=== PATIENT | female | born 1950 | race Caucasian/White ===

== ENCOUNTER → 2017-03-27 | Outpatient (CLI) | payer OTHER ==
[~2017-03-27] MED LIST: ASPCH81X PO; ATOR10TA82 PO; BLAC40CA2 PO; CLON0.1D7 TD; GLIM2TAB2 PO; LANS30CA41 PO; LORA-741 PO; MULT-506 PO; MULT-663 PO; SUCR1TAB PO; UMEC1AER INH
--- NOTE | 2017-03-27 14:29 | DIAGNOSTIC IMAGING REPORT ---
FLUOROSCOPICALLY GUIDED LEFT HIP INTRA-ARTICULAR STEROID INJECTION CLINICAL HISTORY: Left hip degenerative joint disease. FLUOROSCOPY TIME: 13 seconds. FINDINGS: The procedure, risks and benefits were discussed with the patient and informed written consent was obtained. The procedure was performed by Dr. Simpson following a timeout. Premedication for IV dye allergy was utilized according to protocol. Skin overlying the left hip was prepped and draped in sterile fashion and local anesthesia was achieved with 1% lidocaine. Under intermittent fluoroscopic guidance, a 3 1/2 inch, 22-gauge spinal needle was directed into the left hip joint. Positioning within the joint was confirmed with injection of a small amount of contrast. At this time, a mixture of 2 cc of Celestone and 5 cc of 0.5% Marcaine was injected into the left hip joint. The needle was removed. The patient tolerated the procedure well and no immediate complications were evident. One fluoroscopic image was obtained. IMPRESSION: Fluoroscopically guided left hip intra-articular injection of 2 cc of Celestone and 5 cc of 0.5% Marcaine. Electronically signed by: Deepak Simpson M.D. 03/27/2017 2:28 PM Dictated Date/Time: 03/27/2017 2:25 PM
== END | disposition home or self-care (01) ==
LOC: C.RADBC 13:30
PROVIDERS: ATTEND Orthopaedic Surgery
DX: M16.12 Unilateral primary osteoarthritis, left hip (principal)

== ENCOUNTER → 2017-05-01 | Outpatient (CLI) | payer OTHER ==
--- NOTE | 2017-05-01 15:12 | DIAGNOSTIC IMAGING REPORT ---
LUMBAR SPINE W/O CONTRAST CLINICAL HISTORY: 66 years-old Female presenting with LUMBAR RADICULOPATHY, pain in hips. TECHNIQUE: Multisequence, multiplanar MR imaging of the lumbar spine was performed without the use of intravenous contrast. IV contrast: None. COMPARISON: Plain radiographs from 04/29/2017. FINDINGS: Localizer images: Unremarkable. Normal lumbar lordosis. Vertebral bodies maintain normal height, alignment, bone marrow signal intensity. Intervertebral disc desiccation noted diffusely. Intervertebral disc height loss at L1-2 and L5-S1. Multilevel degenerative changes further detailed below: L1-2: Mild disc bulge results in minimal effacement of the anterior thecal sac. No significant neural foraminal narrowing. L2-3: Mild disc bulge and minimal facet arthropathy. Minimal effacement of the anterior thecal sac. No significant neural foraminal narrowing. L3-4: Decreased disc bulge. More significant facet arthropathy and ligamentum flavum thickening. No significant spinal canal stenosis. However mild bilateral neural foraminal narrowing. L4-5: Minimal disc bulge and ligamentum flavum thickening without significant spinal canal narrowing. Mild bilateral neural foraminal narrowing. L5-S1: Mild disc bulge. Mild right and moderate left neural foraminal narrowing. Paraspinal musculature within normal limits. No epidural collection. Spinal cord ends in good position at the inferior endplate of L1. Cauda equina normal in morphology. Abdominal aortic aneurysm measures up to 3 cm in diameter. IMPRESSION: 1. Mild multilevel degenerative changes. No significant spinal canal stenosis. Multilevel neural foraminal narrowing as above. 2. 3 cm abdominal aortic aneurysm. Electronically signed by: Bulmaro Ramirez M.D. 05/01/2017 3:11 PM Dictated Date/Time: 05/01/2017 3:06 PM
== END | disposition home or self-care (01) ==
LOC: C.MRIBC 14:15
PROVIDERS: ATTEND Orthopaedic Surgery
DX: M47.816 Spondylosis without myelopathy or radiculopathy, lumbar region (principal); I71.4 Abdominal aortic aneurysm, without rupture

== ENCOUNTER → 2017-05-25 | Outpatient (CLI) | payer OTHER ==
--- NOTE | 2017-05-25 15:44 | DIAGNOSTIC IMAGING REPORT ---
L LOWER EXT JOINT WITHOUT CLINICAL HISTORY: LEFT HIP PAIN pain TECHNIQUE: Multi axial MRI acquisition COMPARISON STUDY: None FINDINGS: Signal characteristics of the femoral heads indicate geographic alteration in signal of the mid to anterior aspects of the femoral heads. Moderate subchondral edema is identified in a geographic pattern. The overlying articular surfaces appear to be generally intact. No significant joint effusion or bony substance loss. The Pattern, however is consistent with that of developing avascular necrosis. Signal characteristics of all remaining osseous structures are considered unremarkable. No additional bone marrow replacing process is identified. Major surrounding soft tissue structures are unremarkable. Bowel pattern is nonobstructive. Uterus is midline and is unremarkable for age. Bladder is relatively collapsed. There is no significant pelvic or inguinal adenopathy. IMPRESSION: 1. 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 2. No evidence at this time for developing bony substance loss or collapse of the articular surfaces 3. All remaining components of the pelvis are unremarkable. The above report was generated using voice recognition software. It may contain grammatical, syntax or spelling errors. Electronically signed by: Tony Gonzalez M.D. 05/25/2017 3:43 PM Dictated Date/Time: 05/25/2017 3:38 PM
== END | disposition home or self-care (01) ==
LOC: C.MRIBC 14:30
PROVIDERS: ATTEND Orthopaedic Surgery
DX: M87.352 Other secondary osteonecrosis, left femur (principal)

== ENCOUNTER 2017-06-26 04:53 | Inpatient (IN) | payer OTHER ==
[2017-06-15 09:39] VITALS: BMI 23.0
--- NOTE | 2017-06-15 10:19 | PAT Medication Instructions ---
Service Date Jun 15, 2017. Current Home Medication List Ascorbic Acid (Vitamin C), 500 PO QAM Aspirin (Aspirin Chewable), 81 MG PO QAM Clopidogrel (Plavix), 75 MG PO QAM Dexlansoprazole (Dexilant), 30 MG PO BID Ferrous Sulfate (Iron), 325 MG PO BID Gabapentin (Neurontin), 100 MG PO TID Glimepiride (Glimepiride), 1 TAB PO QAM Lorazepam (Ativan), 0.5 MG PO BID Metformin Hcl (Glucophage), 1,000 MG PO BID Multivit/Min/Iron/Fol Ac/Pren ( Vitamin), 2 TAB PO QAM Rosuvastatin Calcium (Crestor), 5 MG PO QAM Umeclidinium-Vilanterol (Anoro Ellipta 62.5-25 Mcg/INH), 1 PUFF INH QAM Vitamin E (Alph-E), 400 UNITS PO BID [Citrical], 2 TAB PO QAM [Vitamin B12], 2 TAB PO QAM Medication Instructions For Your Scheduled Surgery -Hold the following medications for five days per your prescriber's instructions : Clopidogrel (Plavix), 75 MG PO QAM - Hold the following medications starting today: Vitamin E (Alph-E), 400 UNITS PO BID - Hold the following medications 7 days prior to surgery per your surgeon's instructions: Ascorbic Acid (Vitamin C), 500 PO QAM Ferrous Sulfate (Iron), 325 MG PO BID Multivit/Min/Iron/Fol Ac/Pren ( Vitamin), 2 TAB PO QAM [Citrical], 2 TAB PO QAM [Vitamin B12], 2 TAB PO QAM - Hold the following medications the morning of surgery: Dexlansoprazole (Dexilant), 30 MG PO BID Glimepiride (Glimepiride), 1 TAB PO QAM Metformin Hcl (Glucophage), 1,000 MG PO BID - Take the following medications the morning of surgery with a sip of water: Aspirin (Aspirin Chewable), 81 MG PO QAM Gabapentin (Neurontin), 100 MG PO TID Lorazepam (Ativan), 0.5 MG PO BID Rosuvastatin Calcium (Crestor), 5 MG PO QAM Umeclidinium-Vilanterol (Anoro Ellipta 62.5-25 Mcg/INH), 1 PUFF INH QAM - Take the following medications as scheduled the night before surgery: Dexlansoprazole (Dexilant), 30 MG PO BID Ferrous Sulfate (Iron), 325 MG PO BID Gabapentin (Neurontin), 100 MG PO TID Lorazepam (Ativan), 0.5 MG PO BID Metformin Hcl (Glucophage), 1,000 MG PO BID If you have any questions please call us at [phone] or [phone] or [phone]
--- NOTE | 2017-06-15 11:06 | DIAGNOSTIC IMAGING REPORT ---
CHEST 2 VIEWS ROUTINE CLINICAL HISTORY: 66 years-old Female presenting with preoperative assessment. TECHNIQUE: PA and lateral views of the chest were obtained. COMPARISON: None. FINDINGS: Atherosclerosis of the aortic arch. Cardiac silhouette normal in size. Lungs and pleural spaces clear. Osseous structures normal. Upper abdomen normal. IMPRESSION: 1. No acute cardiopulmonary disease. Electronically signed by: Bulmaro Ramirez M.D. 06/15/2017 11:04 AM Dictated Date/Time: 06/15/2017 11:03 AM
[2017-06-15 12:00] LABS: BASO % 0.3 %; BASO ABS # 0.02 K/uL (0-0.2); EOS % 0.9 %; EOS ABS # 0.06 K/uL (0-0.5); HEMATOCRIT 36.1 % (37-47); IG# 0.02 K/uL (0.00-0.02); LYMPH % 24.6 %; LYMPH ABS # 1.65 K/uL (1.2-3.4); MEAN CELL VOLUME 90.5 fL (80-100); MEAN CORPUSCULAR HEMOGLOBIN 27.6 pg (25-34); MEAN CORPUSCULAR HGB CONC 30.5 g/dl (32-36); MEAN PLATELET VOLUME 9.2 fL (7.4-10.4); MONO % 8.5 %; MONO ABS # 0.57 K/uL (0.11-0.59); NEUT % 65.4 %; NEUT ABS # 4.39 K/uL (1.4-6.5); PLATELET COUNT 175 K/uL (130-400); WHITE BLOOD COUNT 6.71 K/uL (4.8-10.8)
[2017-06-15 12:08] LABS: INR 1.1 (0.9-1.1); PTT PATIENT 25.7 SECONDS (21.0-31.0)
[2017-06-15 13:28] LABS: HEMOGLOBIN A1C 4.8 % (4.5-5.6)
[2017-06-15 14:25] LABS: CALCIUM 9.2 mg/dl (8.5-10.1); CREATININE 0.6 mg/dl (0.60-1.20); POTASSIUM 3.4 mmol/L (3.5-5.1)
--- NOTE | 2017-06-25 17:14 | HISTORY & PHYSICAL EXAMINATION ---
DATE OF ADMISSION: 06/26/2017 CHIEF COMPLAINT: Avascular necrosis of the left hip. HISTORY OF PRESENT ILLNESS: Laly is a pleasant 66-year-old female who has been dealing with bilateral hip pain, left worse than right, for several months. X-rays did not look too bad. I gave her an intraarticular injection in the hip. It did help some with her symptoms, but she was still having pain. X-rays and MRI of the lumbar spine were essentially negative. I then got an MRI of her hip. MRI did show avascular necrosis. After failing conservative treatment, she elected to proceed with a left total hip arthroplasty. PAST MEDICAL HISTORY: Significant for okm-trucjas-tnyrhwbmo diabetes, hyperlipidemia, liver disease, COPD, stent placement in her left femoral artery which is the reason for Plavix. PAST SURGICAL HISTORY: Significant for a surgery to her right iliac vessels. ALLERGIES: IODINE IN IV AND BRAZIL NUTS. MEDICATIONS: Include Crestor, metformin, lorazepam, lansoprazole, Breo inhaler, gabapentin, Plavix, vitamin E, baby aspirin, and glimepiride. FAMILY HISTORY: Significant for diabetes and squamous cell carcinoma. SOCIAL HISTORY: Patient is , rarely drinks, is mildly active. REVIEW OF SYSTEMS: She complains of bilateral hip pain, left worse than right. All other pertinent review of systems negative. PHYSICAL EXAMINATION. GENERAL: She is awake, alert, and oriented x3. She is in no apparent distress. She is very pleasant. HEENT: Pupils are equal, round, and reactive to light. Extraocular movements are intact. Oral mucosa is pink and moist. CARDIOVASCULAR: The heart has regular rate per radial pulse. RESPIRATORY: The lungs autumn symmetrically bilaterally with no audible breath sounds. GASTROINTESTINAL: The abdomen is soft, nontender, nondistended. MUSCULOSKELETAL: On physical examination of her hip, her leg lengths are equal. She does walk with slightly antalgic gait. She has range of motion with 100 degrees of flexion, 30 degrees of external rotation, 20 degrees of internal rotation. She has pain with forced internal rotation of the hip, 5/5 muscle strength with straight leg raise. No pain over the greater trochanteric bursa. IMAGING DATA: MRI of the hip shows avascular necrosis of the femoral head. There are no signs of collapse. IMPRESSION: Avascular necrosis of the left hip. PLAN: We will proceed with a left anterior total hip arthroplasty. Postoperatively, she will be started on aspirin for DVT prophylaxis and kept overnight in the hospital for postoperative medical management.
[~2017-06-26] VITALS: Ht 157.5 cm; Wt 59.1 kg
[2017-06-26] VITALS (10 sets, daily range): BP systolic 152–178; BP diastolic 68–91; PULSE 72–88; TEMP 36.4–36.9; O2SAT 93–100; Ht 157.5 cm; Wt 59.1 kg
[~2017-06-26 04:53] MED LIST changes: +ASCO1CAP3 PO; -ATOR10TA82 PO; -BLAC40CA2 PO; +CITRICAL PO; -CLON0.1D7 TD; +CLOP1TAB15 PO; +DEXL30CA5 PO; +FERR1TAB23 PO; +GABA-112 PO; -LANS30CA41 PO; +METF-384 PO; -MULT-506 PO; -MULT-663 PO; +PRENTAB26 PO; +ROSU5TAB PO; -SUCR1TAB PO; +VITA400C28 PO; +VITAMIN B12 PO
[2017-06-26] MEDS ORDERED: TRANEXAMIC ACID INJ 1,000 MG x 2 Bags IV SCH ×2 (06:00)
[2017-06-26] MEDS ORDERED: CEFAZOLIN 2000MG IV PUSH 15 ML IV SCH (06:00)
[2017-06-26] MEDS ORDERED: ROPIVACAINE 5MG/ML 30 ML 150 MG, BUPIVACAINE 0.5% MPF INJ 30 ML, EpINEphrine HCL INJ 0.... INFIL SCH ×8 (06:00)
[2017-06-26] MEDS ORDERED: FAMOTIDINE 20 MG TAB PO SCH (06:00)
[2017-06-26] MEDS ORDERED: LACTATED RINGER'S 1000ML 1,000 ML IV SCH (06:00)
[2017-06-26] MEDS ORDERED: ACETAMINOPHEN 500 MG TAB PO SCH (06:00)
[2017-06-26] MEDS ORDERED: LACTATED RINGER'S 1000ML 500 ML IV SCH (06:00)
[2017-06-26] MEDS ORDERED: LACTATED RINGER'S 1000ML IV SCH (06:00)
[2017-06-26] MEDS ORDERED: GABAPENTIN 300 MG CAP PO SCH (06:00)
[2017-06-26] MEDS ORDERED: BUPIVACAINE 0.5 % 5 MG/1 ML PF 10ML VIAL ONE (06:14)
[2017-06-26] MEDS ORDERED: FENTANYL CITRATE INJ 50 MCG/1 ML 2 ML VIAL ONE (06:17)
[2017-06-26] MEDS ORDERED: MIDAZOLAM HCL 1 MG/ML 2ML VIAL ONE (06:17)
[2017-06-26] MEDS ORDERED: BACITRACIN 50000 UNIT VIAL ONE (06:34)
--- NOTE | 2017-06-26 06:50 | History & Physical Bridge Note ---
H&P Re-Evaluation Bridge Note: I have examined the patient, reviewed the History & Physical and in the interval since the performance of the History & Physical I have noted the following changes of clinical significance: No changes noted
[2017-06-26] MEDS ORDERED: PROPOFOL IV EMULSION 10 MG/ML 20 ML VIAL IV ONE (07:24)
[2017-06-26] MEDS ORDERED: MoRPHine SULFATE 2 MG/ML CARP IV PRN (08:45)
[2017-06-26] MEDS ORDERED: GLUCOSE 10 TABS/TUBE PO PRN (08:45)
[2017-06-26] MEDS ORDERED: SOD PHOSPHATE/SOD BIPHOSPHATE ENEMA 132 ML BTL PR PRN (08:45)
[2017-06-26] MEDS ORDERED: MAGNESIUM HYDROXIDE SUSP 30 ML UDC PO PRN (08:45)
[2017-06-26] MEDS ORDERED: ONDANSETRON INJ 2 MG/ML 2 ML VIAL IV PRN (08:45)
[2017-06-26] MEDS ORDERED: METOCLOPRAMIDE HCL INJ 5 MG/ML 2 ML VIAL IV PRN (08:45)
[2017-06-26] MEDS ORDERED: GLUCOSE 40% GEL 15 GM TUBE PO PRN (08:45)
[2017-06-26] MEDS ORDERED: OXYCODONE HCL IR 5 MG TAB (IMMEDIATE RELEASE) PO PRN (08:45)
[2017-06-26] MEDS ORDERED: DEXTROSE 50% 50 ML SYR IV PRN (08:45)
[2017-06-26] MEDS ORDERED: BISACODYL 10 MG SUPP PR PRN (08:45)
[2017-06-26] MEDS ORDERED: GLUCAGON FOR INJ 1 MG VIAL SQ PRN (08:45)
--- NOTE | 2017-06-26 08:45 | [facility] Post Operative Brief Note ---
Immediate Operative Summary Operative Date Jun 26, 2017. Pre-Operative Diagnosis Avascular Necrosis Left Hip Post-Operative Diagnosis Avascular Necrosis Left Hip Procedure(s) Performed Left Anterior Total Hip Arthroplasty--Uncemented Surgeon Dr. Adam Motocross Racer Surgeon(s) DAVID Castillo Estimated Blood Loss 200 ml Findings Consistent with Post-Op Diagnosis Specimens A. Left Femoral Head Anesthesia Type Spinal MAC Complication(s) none Disposition Disposition: Recovery Room / PACU
[2017-06-26] MEDS ORDERED: ATROPINE SULFATE 0.1 MG/ML 5ML SYR IV PRN (09:00)
[2017-06-26] MEDS ORDERED: MULTIVITAMIN TAB PO SCH (09:00)
[2017-06-26] MEDS ORDERED: EpHEDrine SULFATE INJ 50 MG/ML AMP IV PRN (09:00)
[2017-06-26] MEDS ORDERED: PHARMACY GLYCEMIC MGMT CONSULT PRN (09:02)
--- NOTE | 2017-06-26 09:39 | DIAGNOSTIC IMAGING REPORT ---
L HIP UNILATERAL 1 VIEW HISTORY: 66 years-old Female LEFT ANTERIOR HIP acute left hip pain. Status post left hip arthroplasty. Degenerative joint disease. COMPARISON: None available TECHNIQUE: 2 spot fluoroscopic images of the left hip were obtained utilizing 31.4 seconds fluoroscopy time FINDINGS: First image demonstrates placement of the acetabular component of the left hip arthroplasty with surgical resection of the femoral head and neck. Second image demonstrates placement of the femoral stem which appears to be in appropriate positioning. No periprosthetic fracture or malalignment. Expected postsurgical soft tissue swelling and deep tissue air about the left hip with vascular stent graft noted. IMPRESSION: Fluoroscopic assistance as above. Please see operative report for further details. The above report was generated using voice recognition software. It may contain grammatical, syntax or spelling errors. Electronically signed by: Boston Brower M.D. 06/26/2017 9:38 AM Dictated Date/Time: 06/26/2017 9:37 AM
--- NOTE | 2017-06-26 09:40 | Anesthesiology Progress Note ---
Anesthesia Post Op Note Date & Time Jun 26, 2017 at 09:40 Vital Signs Pain Intensity: 0 Vital Signs Past 12 Hours Date Time Temp Pulse Resp B/P (MAP) Pulse Ox O2 Delivery O2 Flow Rate FiO2 06/26/17 09:30 36.1 78 18 167/71 96 Nasal Cannula 2 06/26/17 09:20 77 14 159/83 98 Nasal Cannula 2 06/26/17 09:10 80 15 161/73 100 Nasal Cannula 2 06/26/17 09:00 76 15 172/79 95 Nasal Cannula 2 06/26/17 08:50 36.1 83 17 150/65 97 Nasal Cannula 2 06/26/17 05:57 36.9 88 16 167/89 94 Room Air Notes Mental Status: alert / awake / arousable, participated in evaluation Pt Amnestic to Procedure: Yes Nausea / Vomiting: adequately controlled Pain: adequately controlled Airway Patency, RR, SpO2: stable & adequate BP & HR: stable & adequate Hydration State: stable & adequate Neuraxial Anesthesia: was administered, sensory block is resolving Anesthetic Complications: no major complications apparent
--- NOTE | 2017-06-26 10:02 | OPERATIVE REPORT ---
DATE OF OPERATION: 06/26/2017 PREOPERATIVE DIAGNOSIS: Avascular necrosis of the left hip. POSTOPERATIVE DIAGNOSIS: Avascular necrosis of the left hip. PROCEDURE: Left total hip arthroplasty. SURGEON: Dr. Neri Adam NATURAL RESOURCE MANAGER: Rodolfo Kevin PA-C, whose assistance was necessary for retraction and closure. ANESTHESIA: Spinal. COMPLICATIONS: None. CONDITION: Stable to PACU. IMPLANTS USED: I used a [employer] Taperloc total hip arthroplasty system with a size 11 standard offset Taperloc stem, a size 46 G7 cup with a 20-mm screw, an E1 neutral poly liner, and a 32-mm ceramic head with a +0 neck. INDICATIONS: Laly is a pleasant 66-year-old female who presented to my office with complaints of chronic left groin and hip pain. X-rays of her lumbar spine and her hip, as well as MRIs of her lumbar spine and her hip showed no pathology in her lumbar spine, but avascular necrosis of her hip. An intra-articular hip injection did help with some of her symptoms and she elected to proceed with a left total hip arthroplasty. DESCRIPTION OF PROCEDURE: On 06/26/2017, she arrived at [facility] for the above procedure. She was seen in the preoperative holding and the operative extremity was identified and signed. She was given a preoperative antibiotic and a spinal anesthetic. She was taken back to the operating room, laid on the table in supine position, and put under basic sedation. The left hip was then prepped and draped in sterile fashion. Time-out was done and the patient's extremity was properly identified. An anterior approach was used to the left hip. Dissection was taken down through the fascia and the tensor muscle belly was retracted laterally and the rectus was retracted medially. The circumflex vessels were ligated. The capsule was incised and tagged for later repair. The femoral neck was then resected and the femoral head was removed. The acetabulum was exposed. Time was spent doing a complete circumferential labral release. Sequential reaming of the acetabulum up to a size 45 reamer was done. Final reaming was done under fluoroscopy. A 46-mm G7 cup was then impacted into place. This was done under fluoroscopy to ensure appropriate version. A single 20 mm screw was placed and an E1 neutral poly liner was then snapped into place. The surrounding soft tissues were injected with 100 mL of an orthopedic pain control cocktail. The proximal femur was then exposed. Sequential broaching up to a size 11 broach was done. A standard head and neck assembly was applied. The hip was reduced and fluoroscopic images showed anatomic alignment and appropriate sizing of the components. The hip was dislocated. The broach was removed. The final size 11 standard offset Taperloc stem was impacted into place. A 32-mm ceramic head with a +0 neck was then impacted into place. The hip was reduced. Final fluoroscopic images showed anatomic alignment. The wound was then irrigated with 3 L of normal saline solution with bacitracin. The capsule was then closed with #1 Vicryl suture. The fascia was then closed with #1 PDS. Skin was closed with 2-0 Vicryl and orin. A Prevena VAC dressing was applied. She was then taken to the postanesthesia care in stable condition. She tolerated the procedure well. I attest to the content of the Intraoperative Record and any orders documented therein. Any exception s are noted below.
--- NOTE | 2017-06-26 10:07 | DIAGNOSTIC IMAGING REPORT ---
L PELVIS/UNILATERAL HIP 1 VIEW CLINICAL HISTORY: Left hip degenerative joint disease. Arthroplasty. COMPARISON: Left hip MRI May 25, 2017. FINDINGS: A stent within the left groin is noted. Alignment of the total left hip arthroplasty is anatomic. There is no fracture or unexpected radiopaque foreign body. Skin orin are noted. IMPRESSION: Expected findings following total left hip arthroplasty. Electronically signed by: Deepak Simpson M.D. 06/26/2017 10:05 AM Dictated Date/Time: 06/26/2017 10:04 AM
--- NOTE | 2017-06-26 11:13 | Pharmacy Progress Note ---
Glycemic Control Intl Consult Date of Service Jun 26, 2017. Scope Glycemic Pharmacist consulted by Dr Adam on 06/26/17 for glycemic control and to write orders per [facility] inpatient glycemic control protocol Objective Weight (Kilograms): 59.100 Accuchecks BSG (last 24hrs): Test 06/26/17 05:29 06/26/17 09:00 Bedside Glucose 121 mg/dl (70-90) 116 mg/dl (70-90) HbA1c Test 06/15/17 10:32 Hemoglobin A1c 4.8 % (4.5-5.6) Recent Pertinent Medications Outpatient Anti-diabetic Regimen: * Metformin 1000 mg PO BID + glimepiride 2 mg PO qAM Risk Factors for Insulin Resistance: * Steroids: ortho mix pre-op (contains 4 mg dexamethasone) * Recent Surgery: POD #0 L-ELAINA * Diet: T2DM Assessment & Plan ASSESSMENT: * 66 yr old female s/p L-ELAINA. * Patient is well controlled on oral antidiabetic agents as an outpatient. * Will hold oral agents for admission and utilize SQ basal bolus insulin regimen which is the recommended regimen for inpatient glycemic control. * Will initiate weight based insulin dosing for insulin esau patient and titrate based on BSG trends. PLAN FOR INPATIENT GLYCEMIC CONTROL: * Holding outpatient oral diabetes medications * will resume metformin on POD #1 if patient is tolerating oral diet and evidence of stable renal function * Basal insulin * Lantus 10-20 units SQ with dinner x 1 * 10 units for BSG < 150, 20 units if BSG is 150 mg/dL or more * Bolus Insulin * NOVOLOG per scale ACHS or Q6hrs while NPO * Goal Range: Low 110 mg/dL - High 140 mg/dL * Correction Factor: 30 mg/dL/unit * Nutritional / Prandial insulin per carb ratio of 1 unit per 10 grams CHO consumed * Overnight check with coverage at 00 and 04 * Please note that the plan above was derived based on current level of insulin resistance and hospital stress. These recommendations are appropriate for inpatient admission only. Plan of care upon discharge will need to be reassessed to avoid potential outpatient hypo/hyperglycemia. Thank you.
[2017-06-26] MEDS: SODIUM CHLORIDE 0.9% 1000ML 1,000 ML IV SCH ×2 (11:21→21:44)
[2017-06-26] MEDS: FERROUS SULFATE 325 MG TAB PO SCH ×2 (11:22→21:26)
[2017-06-26] MEDS: PRENATAL VITAMIN TAB PO SCH (11:22)
[2017-06-26] MEDS: CLOPIDOGREL BISULFATE 75 MG TAB PO SCH (11:23)
[2017-06-26] MEDS: DOCUSATE SODIUM 100 MG CAP PO SCH ×2 (11:25→21:25)
[2017-06-26] MEDS: KETOROLAC TROMETHAMINE 15 MG/ML VIAL IV. SCH ×3 (13:17→23:35)
[2017-06-26] MEDS: INSULIN ASPART 100 UNITS/ML 3 ML PEN SC SCH ×4 (13:19→23:45)
[2017-06-26] MEDS: CEFAZOLIN IV 1,000 MG in SYRINGE 0 ML IV SCH ×2 (13:21→21:27)
[2017-06-26] MEDS: ACETAMINOPHEN IV 1,000 MG in EMPTY BAG 0 ML IV SCH ×2 (13:21→21:27)
[2017-06-26] MEDS: GABAPENTIN 100 MG CAP PO SCH ×2 (13:23→21:26)
[2017-06-26] MEDS ORDERED: LANTUS PER UNIT CHARGE SQ ONE ×2 (17:45→19:00)
[2017-06-26] MEDS ORDERED: SENNA 8.6 MG TAB PO SCH (21:00)
[2017-06-26] MEDS: LORAZEPAM 0.5 MG TAB PO SCH (21:24)
[2017-06-26] MEDS: ASPIRIN 325 MG ECTAB PO SCH (21:25)
[2017-06-26] MEDS: PANTOprazole SOD 40 MG TAB PO SCH (21:26)
[2017-06-27 03:55] VITALS: BP 162/73; PULSE 88; TEMP 36.7; O2SAT 96
[2017-06-27] MEDS: INSULIN ASPART 100 UNITS/ML 3 ML PEN SC SCH ×2 (04:02→08:54)
[2017-06-27] MEDS: KETOROLAC TROMETHAMINE 15 MG/ML VIAL IV. SCH ×2 (05:40→12:33)
[2017-06-27] MEDS: ACETAMINOPHEN IV 1,000 MG in EMPTY BAG 0 ML IV SCH (05:41)
[2017-06-27 06:02] LABS: BASO % 0.2 %; BASO ABS # 0.02 K/uL (0-0.2); EOS % 0.2 %; EOS ABS # 0.02 K/uL (0-0.5); HEMATOCRIT 31.1 % (37-47); IG# 0.03 K/uL (0.00-0.02); MEAN CELL VOLUME 89.1 fL (80-100); MEAN CORPUSCULAR HEMOGLOBIN 28.7 pg (25-34); MEAN CORPUSCULAR HGB CONC 32.2 g/dl (32-36); MEAN PLATELET VOLUME 9.4 fL (7.4-10.4); MONO % 7.2 %; MONO ABS # 0.82 K/uL (0.11-0.59); NEUT % 77.1 %; NEUT ABS # 8.75 K/uL (1.4-6.5); PLATELET COUNT 129 K/uL (130-400); RED CELL DISTRIBUTION WIDTH CV 20.5 % (11.5-14.5); RED CELL DISTRIBUTION WIDTH SD 65.9 fL (36.4-46.3); WHITE BLOOD COUNT 11.34 K/uL (4.8-10.8)
[2017-06-27 06:43] LABS: CALCIUM 8.5 mg/dl (8.5-10.1); CREATININE 0.63 mg/dl (0.60-1.20); POTASSIUM 2.9 mmol/L (3.5-5.1)
[2017-06-27 07:03] VITALS: BP 131/66; PULSE 82; TEMP 36.6; O2SAT 97
[2017-06-27] MEDS: SODIUM CHLORIDE 0.9% 1000ML 1,000 ML IV SCH (07:53)
[2017-06-27] MEDS: PANTOprazole SOD 40 MG TAB PO SCH (08:50)
[2017-06-27] MEDS: FERROUS SULFATE 325 MG TAB PO SCH (08:50)
[2017-06-27] MEDS: CLOPIDOGREL BISULFATE 75 MG TAB PO SCH (08:50)
[2017-06-27] MEDS: ASPIRIN 325 MG ECTAB PO SCH (08:50)
[2017-06-27] MEDS: PRENATAL VITAMIN TAB PO SCH (08:50)
[2017-06-27] MEDS: GABAPENTIN 100 MG CAP PO SCH (08:51)
[2017-06-27] MEDS: DOCUSATE SODIUM 100 MG CAP PO SCH (08:51)
[2017-06-27] MEDS: LORAZEPAM 0.5 MG TAB PO SCH (08:55)
[2017-06-27] MEDS ORDERED: ROSUVASTATIN CALCIUM 5 MG TAB PO SCH (09:00)
[2017-06-27] MEDS ORDERED: ASPIRIN 81 MG ECTAB PO SCH (09:00)
[2017-06-27] MEDS ORDERED: RXC5 PO (09:14)
--- NOTE | 2017-06-27 09:15 | Discharge Instructions ---
Discharge Instructions Date of Service Jun 27, 2017. Admission Reason for Admission: Left Hip Degenerative Joint Disease Discharge Discharge Diagnosis / Problem: Left Total Hip Discharge Goals Goal(s): Decrease discomfort, Improve function Activity Recommendations Activity Limitations: resume your previous activity . Instructions / Follow-Up Instructions / Follow-Up Activity and Therapy Recommendations: * If you are using [facility] then Physical Therapy will be provided until they feel you are ready to start Outpatient Physical Therapy. If you are not using a Home Health agency then Outpatient Physical Therapy should start about 3-5 days from your day of surgery. Therapy will last about 3-6 weeks * You were shown a series of exercises in the hospital. Do these exercises three times each day including the exercises you were shown in physical therapy. * Get up and walk several times each day.~ For the first four weeks, try not to stand or walk for more than one hour at a time. If you do stand or walk for more than one hour, you will not hurt anything, but your leg will likely swell.~ ~ * As you feel comfortable, you may change from the walker or crutches to a cane and~then to independent walking. Medications: * Narcotic You will likely be sent home from the hospital with a prescription for the narcotic pain medication that worked best throughout your stay. * Aspirin Most patients will be required to take Aspirin 325mg twice a day for 6 weeks after surgery. This is obtained [id number] and a prescription is not necessary. * Other medications may be prescribed for specific circumstances. If you have any questions, please call the office at . * Resume previous home medications unless otherwise instructed TEDs/Elastic Stockings: The white elastic stockings help limit swelling and prevent blood clots from forming in your legs. The more you wear them, the more they work. Wear them for six weeks. Dressing Care: You will likely have a purple VAC dressing after surgery. This dressing will keep the incision dry and promote early healing. After about 8 days the batteries will wear out and the VAC will lose suction. Simply remove the dressing at that time and throw everything away, including the small suction machine. Then, you may leave the orin open to air or cover them with a dry dressing so they do not rub on your pants. The orin will be removed at your 2 week follow-up appointment. Showering: You may shower immediately with the purple VAC dressing. Let the shower spray hit your opposite side and slowly pat the plastic dry. Do not soak the dressing. After the dressing is removed you may shower normally with the orin exposed. Let soapy water run over the orin and pat them dry. Things To Watch For: * Drainage from the incision site that occurs more than one week after your surgery. * Increased redness at the incision site. * Fever above 102 degrees Fahrenheit. * Unusual chest pain or shortness of breath. * Call [facility] at with any of the above problems Follow-Up Visit: Follow-up with Dr. Adam 2 weeks after your day of surgery. An appointment was probably scheduled when you signed-up for surgery in the office. If you have any questions call Office Instructions: More detailed instructions as well as Frequently Asked Questions were provided in a folder by our office when you signed-up for surgery. Please review these instructions when you get home. If you have any further questions or concerns, please feel free to call the office at [phone] Current Hospital Diet Patient's current hospital diet: Diabetes Type 2 Diet Discharge Diet Recommended Diet: Diabetes Type 2 Diet Procedures Procedures Performed: Left Anterior Total Hip Arthroplasty--Uncemented Pending Studies Studies pending at discharge: no Laboratory Results Hemoglobin A1c Test 06/15/17 10:32 Range/Units Estimated Average Glucose 91 mg/dl Hemoglobin A1c 4.8 4.5-5.6 % Medical Emergencies . Who to Call and When: Medical Emergencies: If at any time you feel your situation is an emergency, please call 482 immediately. . Non-Emergent Contact Non-Emergency issues call your: Surgeon Call Non-Emergent contact if: wound has increased drainage, wound has increased redness . "Provider Documentation" section prepared by Neri Adam. .
[2017-06-27 10:16] VITALS: BP 131/66; PULSE 82; TEMP 36.6; O2SAT 97
--- NOTE | 2017-06-27 10:21 | PROGRESS NOTE ---
DATE: 06/27/2017 CHIEF COMPLAINT: Status post left total hip arthroplasty, postop day #1. PROGRESS: Laly was seen and examined at bedside today. Overall, she is doing very well. She really has very little pain in the hip. She has been up and ambulating without difficulty. She has no complaints. PHYSICAL EXAMINATION: The Prevena VAC dressing is to suction. Her leg lengths are equal. Her sensation is intact. DATA: She has an H and H today of 10.0 and 31.1. Her glucose is 196 and is being managed by pharmacy. Her vital signs are stable on room air and she is voiding on her own. She has already had a bowel movement. X-rays postoperatively of the left hip show the prosthesis to be in anatomic alignment without any evidence of fracture, dislocation or loosening. IMPRESSION: Status post left total hip arthroplasty, postop day #1. PLAN: At this point, she is doing well and happy with her progress. She is already ambulating well. She will continue Plavix and 81 mg aspirin upon discharge for DVT prophylaxis. She can be discharged home today with [facility]. I will see her back in the office in 2 weeks.
--- NOTE | 2017-06-27 11:22 | DISCHARGE SUMMARY ---
DISCHARGE DIAGNOSES: Avascular necrosis of the left hip. PROCEDURE: Left total hip arthroplasty by Dr. Adam on 06/26/2017. DISCHARGE INSTRUCTIONS: 1. Oxycodone 5-10 mg every 4 hours as needed for pain. 2. Plavix 75 mg daily. 3. Aspirin 81 mg daily. 4. Dexilant 30 mg twice a day. 5. Iron 325 mg twice a day. 6. Neurontin 100 mg 3 times a day. 7. Glimepiride 2 mg daily. 8. Ativan 0.5 mg twice a day. 9. Glucophage 1000 mg twice a day. 10. Crestor 5 mg daily. 11. Continue all other vitamins, minerals and supplementations. 12. Remove Prevena VAC dressing in 8 days. 13. Follow up with [facility]. 14. Call the office of Dr. Adam with any questions or concerns. HOSPITAL COURSE: Laly is a pleasant 66-year-old female who presented to my office with chronic increasing left hip and leg pain. Full workup was diagnostic for avascular necrosis of the left hip. After failing conservative treatment, she elected to undergo a left total hip arthroplasty. On 06/26/2017, she arrived at [facility] and underwent a left hip replacement without complication. She had a spinal anesthetic. Postoperatively, she was started on aspirin for DVT prophylaxis and discharged to general orthopedic floor. Her hospital course was uneventful. On postop day #1, her H and H was stable at 10.0 and 31.1. She was ambulating very well with physical therapy and her pain was well controlled. She was on Plavix and aspirin for DVT prophylaxis. She was subsequently discharged to home with the above instructions.
[2017-06-27] MEDS ORDERED: ACETAMINOPHEN 500 MG TAB PO SCH (14:00)
== END 2017-06-27 13:05 | disposition home or self-care (01) | DRG 470 ==
LOC: C.ACU 04:53 → C.3E 06:30 → ENRESERV 09:41
PROVIDERS: ADMIT Orthopaedic Surgery; ATTEND Orthopaedic Surgery
PROC: 0SRB04A Replacement of Left Hip Joint with Ceramic on Polyethylene Synthetic Substitute, Uncemented, Open Approach (ICD-10-PCS; principal; 2017-06-26 07:00)
DX: M87.052 Idiopathic aseptic necrosis of left femur (principal); E11.51 Type 2 diabetes mellitus with diabetic peripheral angiopathy without gangrene; E78.5 Hyperlipidemia, unspecified; J44.9 Chronic obstructive pulmonary disease, unspecified; K76.0 Fatty (change of) liver, not elsewhere classified; K21.9 Gastro-esophageal reflux disease without esophagitis; Z95.820 Peripheral vascular angioplasty status with implants and grafts; Z87.442 Personal history of urinary calculi; Z85.048 Personal history of other malignant neoplasm of rectum, rectosigmoid junction, and anus; Z92.21 Personal history of antineoplastic chemotherapy; Z92.3 Personal history of irradiation; Z87.891 Personal history of nicotine dependence; Z79.02 Long term (current) use of antithrombotics/antiplatelets; Z79.51 Long term (current) use of inhaled steroids; Z79.82 Long term (current) use of aspirin; Z79.84 Long term (current) use of oral hypoglycemic drugs; Z79.899 Other long term (current) drug therapy; Z91.048 Other nonmedicinal substance allergy status; Z91.018 Allergy to other foods; Z83.3 Family history of diabetes mellitus